=== PATIENT | female | born 2000 | race Two or more races ===

== ENCOUNTER 2022-11-24 09:33 | Outpatient (CLI) | payer OTHER | END 2022-11-24 11:07 | disposition home or self-care (01) | LOC: PRENATAL 09:33 | PROVIDERS: ATTEND Obstetrics & Gynecology Maternal & Fetal Medicine | DX: O35.9XX0 Maternal care for (suspected) fetal abnormality and damage, unspecified, not applicable or unspecified (principal); O35.3XX0 Maternal care for (suspected) damage to fetus from viral disease in mother, not applicable or unspecified; O14.95 Unspecified pre-eclampsia, complicating the puerperium; Z3A.20 20 weeks gestation of pregnancy ==

== ENCOUNTER 2023-02-23 08:16 | Outpatient (CLI) | payer OTHER | END 2023-02-23 11:38 | disposition home or self-care (01) | LOC: PRENATAL 08:16 | PROVIDERS: ATTEND Obstetrics & Gynecology Maternal & Fetal Medicine | DX: O26.849 Uterine size-date discrepancy, unspecified trimester (principal); O36.8199 Decreased fetal movements, unspecified trimester, other fetus; O14.90 Unspecified pre-eclampsia, unspecified trimester; Z3A.33 33 weeks gestation of pregnancy ==

== ENCOUNTER 2023-03-20 02:02 | Outpatient (CLI) | payer OTHER ==
[2023-03-20] MEDS ORDERED: PRENATAL TABLE1 EAC1 PO (02:11)
== END 2023-03-20 11:54 | disposition home or self-care (01) ==
LOC: OBS/DEL 02:02
PROVIDERS: ATTEND Obstetrics & Gynecology
DX: O23.33 Infections of other parts of urinary tract in pregnancy, third trimester (principal); N39.0 Urinary tract infection, site not specified; Z3A.37 37 weeks gestation of pregnancy

== ENCOUNTER 2023-04-02 08:52 | Outpatient (CLI) | payer OTHER ==
[~2023-04-02 08:52] MED LIST: PRENATAL TABLE1 EAC1 PO
== END 2023-04-02 14:27 | disposition home or self-care (01) ==
LOC: OBS/DEL 08:52
PROVIDERS: ATTEND Obstetrics & Gynecology
DX: O47.1 False labor at or after 37 completed weeks of gestation (principal); Z3A.38 38 weeks gestation of pregnancy

== ENCOUNTER 2023-04-05 07:14 | Inpatient (IN) | payer OTHER ==
[~2023-04-05] VITALS: Ht 157.5 cm; Wt 82.6 kg
== END 2023-04-08 12:23 | disposition home or self-care (01) | DRG 807 ==
LOC: LDR 07:14 → O/R 04-06 16:31 → OB/GYN 04-06 16:58
PROVIDERS: ADMIT Obstetrics & Gynecology; ATTEND Obstetrics & Gynecology
PROC: 3E0P7VZ Introduction of Hormone into Female Reproductive, Via Natural or Artificial Opening (ICD-10-PCS; 2023-04-05)
PROC: 4A1HXCZ Monitoring of Products of Conception, Cardiac Rate, External Approach (ICD-10-PCS; 2023-04-05)
PROC: 10D17Z9 Manual Extraction of Products of Conception, Retained, Via Natural or Artificial Opening (ICD-10-PCS; 2023-04-06)
PROC: 3E033VJ Introduction of Other Hormone into Peripheral Vein, Percutaneous Approach (ICD-10-PCS; 2023-04-06)
PROC: 10E0XZZ Delivery of Products of Conception, External Approach (ICD-10-PCS; principal; 2023-04-06 15:00)
DX: O73.0 Retained placenta without hemorrhage (principal); Z37.0 Single live birth; O99.824 Streptococcus B carrier state complicating childbirth; Z3A.39 39 weeks gestation of pregnancy; Z20.822 Contact with and (suspected) exposure to COVID-19